=== PATIENT | male | born 1950 | race Caucasian/White ===

== ENCOUNTER 2018-06-30 12:30 | Day surgery (SDC) | payer MEDICARE, BC ==
--- NOTE | 2018-06-30 07:29 | History and Physical - [facility] ---
CHIEF COMPLAINT/HISTORY OF CHIEF COMPLAINT: This patient with a history of an intractable lumbar radiculopathy had a spinal cord stimulator trial on 06/03/18 with 75+% pain control. Due to the failure of all therapy and the success of the trial, he presents today for implantation of a permanent system. PAST MEDICAL HISTORY: Cardiac arrhythmia. PAST SURGICAL HISTORY: Arthroscopic knee surgery. EMPLOYMENT STATUS: Retired. MEDICATIONS ON ADMISSION: List to be provided. ALLERGIES: None. FAMILY/PSYCHOSOCIAL HISTORY: Social history - Social alcohol. Family history - Cancer. SYSTEMS REVIEW: The patient seems appropriate in no acute distress. The remainder of the systems review is positive for degenerative arthritis. PHYSICAL EXAMINATION: Height is 5'7", weight is 200 pounds. No vital signs. HEENT: Within normal limits. LUNGS: Clear. HEART: Regular rate and rhythm. ABDOMEN: Nontender. MUSCULOSKELETAL: Examination of the musculoskeletal system shows diffuse tenderness throughout the lumbar spine. Range of motion does produce pain throughout the low back and extending into his lower extremities somewhat more left than right. There are mild sensory and motor deficits to the left. Ambulation - No assistive device utilized. NEUROLOGIC: Cranial nerves are intact. IMPRESSION: LUMBAR RADICULOPATHY, ICD-10 CODE M54.16 AND M54.17. PLAN: The patient is here after failure of therapy and the success of the stimulator trial for implantation of a permanent system. The procedure will be considered outpatient, although an overnight stay will be evaluated. JOB NUMBER: [id number] MTDD
[~2018-06-30 12:30] MED LIST: ACETAMINOPHEN 1,000 MG/100 ML BTL IV ONE; FAMOTIDINE 20MG TABLET PO ONE; MECLIZINE 25 MG TABLET PO ONE; METOCLOPRAMIDE 10 MG TABLET PO ONE; VANCOMYCIN HCL 1,000 MG in DEXTROSE 5 % IN WATER 250 ML IVPB ONE
[2018-06-30] MEDS ORDERED: FLUMAZENIL 1MG/10ML VIAL IV ONE (12:31)
[2018-06-30] MEDS ORDERED: 0.9 % SODIUM CHLORIDE 10 ML VIAL IVP ONE (12:31)
[2018-06-30] MEDS ORDERED: CEFAZOLIN 1G VIAL IM ONE (12:31)
[2018-06-30] MEDS ORDERED: **ER** KETAMINE HCL 500MG/10ML VIAL IV ONE (12:31)
[2018-06-30] MEDS ORDERED: MIDAZOLAM HCL 2MG/2ML VIAL IV ONE (12:31)
[2018-06-30] MEDS ORDERED: LIDOCAINE 2% MDV (20MG/ML) 20ML VIAL IV ONE (12:31)
[2018-06-30] MEDS ORDERED: LIDOCAINE 1% W/EPI 1:200,000 MPF 30ML SQ ONE (12:31)
[2018-06-30] MEDS ORDERED: BUPIVACAINE 0.5% W/EPI MPF 30 ML VIAL IVP ONE (12:31)
[2018-06-30] MEDS ORDERED: FENTANYL PF 100MCG/2ML VIAL IV ONE (12:31)
[2018-06-30] MEDS ORDERED: PROPOFOL 10 MG/ML VIAL IV ONE (12:31)
--- NOTE | 2018-07-03 07:23 | Operative Note - [facility] ---
DATE OF SURGERY: 06/30/18 PREOPERATIVE DIAGNOSIS: LUMBAR RADICULOPATHY, ICD-10 CODE = M54.16 AND M54.17. OPERATION: 1. FLUOROSCOPICALLY-GUIDED RIGHT EPIDURAL ACCESS T12/L1. PLACEMENT OF SPINAL CORD STIMULATOR LEAD 1, A [employer] IN[employer]INION 16 WITH 6 ELECTRODES POSITIONED RIGHT T7. 2. FLUOROSCOPIC EPIDURAL ACCESS RIGHT T11/12, PLACEMENT OF SPINAL CORD STIMULATOR LEAD 2, A [employer] IN[employer] 16 WITH 6 ELECTRODES POSITIONED LEFT T7. 3. COMPLEX PROGRAMMING OF LEAD 1 OVER 20 MINUTES FOLLOWED BY COMPLEX PROGRAMMING OF LEAD 2 OVER 20 MINUTES. 4. INCISION, SUBCUTANEOUS DISSECTION, AND ANCHORING OF LEAD 1 AND LEAD 2 TO SUPRASPINOUS FASCIA USING A [employer] SCIENTIFIC LOCKING ANCHOR. 5. INCISION, SUBCUTANEOUS DISSECTION, AND CREATION OF SUBCUTANEOUS POUCH AT RIGHT FLANK; SITE PICKED BY PATIENT FOR THE GENERATOR; A [employer] PROGRAMMABLE RECHARGEABLE WAVEWRITER. 6. TUNNELING BETWEEN POUCHES. PLACEMENT OF EXTERNAL PORTION OF LEAD 1 AND LEAD 2 INTO GENERATOR POUCH EACH LEAD INTERFACED TO GENERATOR. 7. PLACEMENT OF GENERATOR INTO POUCH. PLACEMENT OF LEADS INTO POUCH. CLOSURE OF BOTH INCISIONS STRATAFIX SUTURE 2-0 FASCIA, 3-0 SKIN. DERMABOND CLOSURE. 8. COMPLEX RECOVERY ROOM PROGRAMMING EXTERNAL GENERATOR, HOME TRIAL, TWO STIMULATORS, 20 MINUTES. SURGEON: ASHLY GRAFF D.O. ANESTHESIA: ANESTHESIA PROVIDER: INDICATION: This patient presents with a history of an intractable lumbar radiculopathy. Due to the failure of therapy, a spinal cord stimulator trial was conducted with 75 plus percent pain control. Due to the failure of therapy and the success of the trial, he presents for implantation of a permanent system. DESCRIPTION OF PROCEDURE: Intravenous line, vital sign monitoring, IV sedation. Prepped and draped sterile technique. The epidural interspace at 08/28 and 08/09 were identified and marked on the right, skin infiltrated, and two separate curved axis Epimed needles with [id number]. At 08/28, spinal cord stimulator lead 1, a [employer] Infinion 16 with 6 electrodes positioned right at T7. With the epidural access at 08/09, spinal cord stimulator lead 2 also a [employer] Infinion 16 with 6 electrodes positioned left at T7. Complex programming of lead 1 over 20 minutes followed by complex programming of lead 2 over 20 minutes resulting in complete patterns of stimulation. During the program, each lead was moved up to T6. Programming resulted in 75 plus percent pain control; patient indicating we actually had better control of his back than we did during the trial. He was given the option to implant, continue to program, or remove; he opted to implant. Questions were repeated with the same response. He was resedated and the skin above and below the needles infiltrated, incision made, and subcutaneous dissection was conducted to the supraspinous fascia. The needle was removed then each of the leads was anchored to the supraspinous fascia with a [employer] [place]. At the right flank; site picked by the patient for the generator, skin infiltrated, incision made, and subcutaneous dissection was conducted to form a pouch of suitable size and depth for the generator, a [employer] Programmable Rechargeable. A tunneling tool was used to carry the leads into the generator pouch and lead was interfaced to the generator. Antibiotic irrigation and Bovie for hemostasis. The generator was placed into the pouch and the leads were placed in their own pouch then both incisions were closed with STRATAFIX suture 2-0 fascia, 3-0 skin. Dermabond closure approximating the edges of the wound. He was transported to the Recovery Room stable. No side-effects from the procedure or the sedation. When fully awake and alert, complex programming of the two leads performed in the Recovery Room, 20 minutes, re-establishing stimulation and pain control to all of the appropriate areas. He was requesting to go home. He was given the appropriate script though his pharmacy and then prepared for discharge. DISCHARGE INSTRUCTIONS: 1. Sites remain clean and dry. No showering or bathing although the Dermabond will allow showering in 24 hours. He should not sit in water. 2. Standard medications resumed including his antibiotic. 3. Activities should stay low for the next 7-10 days. The office will call the patient in 2-48 hours to set up an appointment in the office to evaluate the sites in -10 days. All other instructions provided, numbers to contact with problems given, he will be discharged. cc: Dr. Nugent JOB NUMBER: [id number] [facility]
--- NOTE | 2018-07-04 09:41 | RADIOLOGY REPORT ---
EXAM: SPINE, 1 VIEW HISTORY: POST STIMULATOR IMPLANT. TECHNIQUE: A single AP view of the spine including the thoracic spine and upper lumbar region. COMPARISON: No prior spinal series with which to compare. FINDINGS: Battery pack partially seen along the lower edge of the film laterally on the right, with two catheters/electrodes extending from this to overlie the spine in the upper lumbar region and then ascend up into the thoracic level to the T6 level. Prominent spurring in the lower thoracic spine. IMPRESSION: SPINAL ELECTRODE WIRES EXTEND UP TO THE T6 LEVEL. JOB NUMBER: [id number] MTDD
== END 2018-06-30 16:48 | disposition home or self-care (01) ==
LOC: SUR 12:30
PROVIDERS: ATTEND Pain Medicine Interventional Pain Medicine
DX: M54.16 Radiculopathy, lumbar region (principal); M54.17 Radiculopathy, lumbosacral region; I48.91 Unspecified atrial fibrillation; Z79.01 Long term (current) use of anticoagulants
CPT/HCPCS: 63650; 63685; 01936; 95972; 72020; J3370; J3010; C1820; C1883; J0690; J7060